=== PATIENT | female | born 1965 | race Caucasian/White ===

== ENCOUNTER 2018-01-19 16:33 | Emergency (ER) | payer SELFPAY ==
--- NOTE | 2018-01-19 17:07 | RAD REPORT ---
EXAM DESCRIPTION: CT - Head Brain Wo Cont - 01/19/2018 5:00 pm CLINICAL HISTORY: Hypertension, headache. COMPARISON: None. TECHNIQUE: All CT scans are performed using dose optimization technique as appropriate and may inclu de automated exposure control or mA/KV adjustment according to patient size. FINDINGS: No intracranial hemorrhage, hydrocephalus or extra-axial fluid collection.No areas of brai n edema or evidence of midline shift. The paranasal sinuses and mastoids are clear. The calvarium is intact. IMPRESSION: No acute intracranial abnormality.
[2018-01-19 17:10] LABS: Barbiturates NEGATIVE; Benzodiazepines NEGATIVE; Cocaine NEGATIVE; METHAMPHETAM NEGATIVE; Opiates NEGATIVE; Phencyclidine NEGATIVE; THC Cannibis NEGATIVE
[2018-01-19] MEDS ORDERED: ACETAMINOPHEN 500 MG TAB ONE (17:18)
[2018-01-19] MEDS ORDERED: NA CHLORIDE 0.9% 500 ML ONE (17:18)
[2018-01-19 17:21] LABS: Absolute Lymphocytes (CBC) 1.3 K/uL (0.7-4.9); Absolute Monocytes 0.3 K/uL (0.1-1.3); Absolute Neutrophil 3.5 K/uL (1.8-8.0); Basophils % 1.5 % (0-1.3); Eosinophils % 5.3 % (0-4.4); Hematocrit 39.2 % (36.0-45.0); MCH 30.3 pg (27.0-35.0); MPV 7.8 fL (7.6-11.3); Monocytes % 6.2 % (3.3-12.3); RBC Red Blood Cell Count 4.26 M/uL (3.86-4.86)
[2018-01-19 17:27] LABS: Protime INR 0.9
[2018-01-19 17:27] LABS: Urine Blood 2+ (NEG); Urine Glucose NEGATIVE (NEG); Urine Protein NEGATIVE (NEG); Urine pH 6.5 (5.0-7.0)
[2018-01-19 17:30] LABS: Bicarbonate 30 mEq/L (21-31); Glucose Level 98 mg/dL (65-120); Potassium 3.6 mEq/L (3.6-5.0); Sodium Level 143 mEq/L (135-145)
[2018-01-19 17:36] LABS: ALT/SGPT 25 IU/L (10-60); AST/SGOT 29 IU/L (10-42); Albumin 3.9 g/dL (3.2-5.5); Alkaline Phosphatase 79 IU/L (42-121); BUN Blood Urea Nitrogen 22 mg/dL (6-20); Bilirubin Direct < 0.1 mg/dL (0-0.2); Bilirubin Total 0.5 mg/dL (0.3-1.2); Protein, Total 7.2 g/dL (6.0-8.3)
[2018-01-19] MEDS ORDERED: cloNIDine HCl 0.1 MG TAB ONE (17:46)
--- NOTE | 2018-01-19 18:07 | EDPHYS ---
Physician Documentation [facility] Name: Mely Gomez Age: 52 yrs Sex: Female : 1965 Arrival Date: 01/19/2018 Time: 16:34 Bed 16 Private MD: ED Physician Valente Garcia HPI: 01/19 16:42 This 52 yrs old Female presents to ER via EMS with complaints of High Blood cp Pressure. 16:42 The patient has elevated blood pressure and discovered this [place]. Onset: The cp symptoms/episode began/occurred today. Associated signs and symptoms: Pertinent positives: headache, sore throat, cough, Pertinent negatives: chest pain, vomiting, weakness. Severity of symptoms: in the emergency department the blood pressure is improved, mildly, 180 mm Hg. 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 - Social history:: Smoking status: Patient uses tobacco products, denies chronic smoking, but will smoke occasionally. ROS: 16:50 Constitutional: Negative for body aches, chills, fever, poor PO intake. cp 16:50 Eyes: Negative for injury, pain, redness, and discharge. cp 16:50 ENT: Positive for ear pain, sinus congestion, sore throat, Negative for difficulty swallowing, difficulty handling secretions, hoarseness. 16:50 Neck: Negative for pain with movement, pain at rest, stiffness, tenderness. 16:50 Cardiovascular: Negative for chest pain, edema, palpitations. 16:50 Respiratory: Negative for cough, shortness of breath, wheezing. 16:50 Abdomen/GI: Negative for abdominal pain, nausea, vomiting, and diarrhea, anorexia, black/tarry stool, rectal bleeding. 16:50 Back: Negative for pain at rest, pain with movement, radiated pain. 16:50 : Negative for urinary symptoms. 16:50 Skin: Negative for cellulitis, rash. 16:50 Neuro: Positive for headache, Negative for altered mental status, loss of consciousness, syncope, near syncope, weakness. 16:50 All other systems are negative. Exam: 16:55 Constitutional: The patient appears in no acute distress, alert, awake, cp non-diaphoretic, non-toxic, well developed, well nourished. 16:55 Head/Face: Normocephalic, atraumatic. cp 16:55 Eyes: Pupils equal round and reactive to light, extra-ocular motions intact. Lids and cp lashes normal. Conjunctiva and sclera are non-icteric and not injected. Cornea within normal limits. Periorbital areas with no swelling, redness, or edema. ENT: Nares patent. No nasal discharge, no septal abnormalities noted. Tympanic membranes are normal and external auditory canals are clear. Oropharynx with no redness, swelling, or masses, exudates, or evidence of obstruction, uvula midline. Mucous membranes moist. Neck: Trachea midline, no thyromegaly or masses palpated, and no cervical lymphadenopathy. Supple, full range of motion without nuchal rigidity, or vertebral point tenderness. No Meningismus. Chest/axilla: Normal chest wall appearance and motion. Nontender with no deformity. No lesions are appreciated. Cardiovascular: Regular rate and rhythm with a normal S1 and S2. No gallops, murmurs, or rubs. Normal PMI, no JVD. No pulse deficits. Respiratory: Lungs have equal breath sounds bilaterally, clear to auscultation and percussion. No rales, rhonchi or wheezes noted. No increased work of breathing, no retractions or nasal flaring. Abdomen/GI: Soft, non-tender, with normal bowel sounds. No distension or tympany. No guarding or rebound. No evidence of tenderness throughout. Skin: Warm, dry with normal turgor. Normal color with no rashes, no lesions, and no evidence of cellulitis. Neuro: Awake and alert, GCS 15, oriented to person, place, time, and situation. Cranial nerves II-XII grossly intact. Motor strength 5/5 in all extremities. Sensory grossly intact. Cerebellar exam normal. Normal gait. 17:22 ECG was reviewed by the Attending Physician. cp Vital Signs: 16:41 BP 180 / 97; Pulse 84; Resp 16; Temp 98.8; Pulse Ox 98% on R/A; Weight 74.84 kg; Height em 5 ft. 2 in. (157.48 cm); Pain 2/10; 17:25 BP 161 / 92; Pulse 75; Resp 18; Pulse Ox 100% on R/A; em 18:10 BP 145 / 92; Pulse 75; Resp 16; Pulse Ox 99% on R/A; Pain 0/10; em 19:00 BP 143 / 88; Pulse 76; Resp 17; Pulse Ox 99% on R/A; Pain 0/10; em 16:41 Body Mass Index 30.18 (74.84 kg, 157.48 cm) em MDM: 16:45 Patient medically screened. cp 16:45 Differential diagnosis: hypertensive crisis, Malignant HTN, CVA, intracerebral cp hemorrhage, illegal drug use. 18:47 Data reviewed: vital signs, nurses notes, lab test result(s), EKG, radiologic studies, cp plain films. Test interpretation: by ED physician or midlevel provider: ECG, plain radiologic studies. Response to treatment: the patient's symptoms have markedly improved after treatment, and as a result, I will discharge patient. 01/19 16:40 Order name: Basic Metabolic Panel; Complete Time: 17:47 01/19 17:47 Interpretation: Normal except: BUN 22; CRE 1.28; GFR 44. 01/19 16:40 Order name: CBC with Diff; Complete Time: 17:32 01/19 17:32 Interpretation: Normal except: EOSINOPHIL % 5.3; BASO% 1.5. 01/19 16:40 Order name: LFT's; Complete Time: 17:47 01/19 16:40 Order name: Magnesium; Complete Time: 17:47 01/19 16:40 Order name: PT-INR; Complete Time: 17:32 01/19 16:40 Order name: Ptt, Activated; Complete Time: 17:32 01/19 16:40 Order name: Influenza Screen (a \T\ B); Complete Time: 17:21 01/19 16:40 Order name: Strep; Complete Time: 17:21 01/19 16:40 Order name: UDS; Complete Time: 17:21 01/19 17:21 Interpretation: Reviewed. 01/19 16:45 Order name: CT Head Brain wo Cont; Complete Time: 17:21 01/19 17:33 Interpretation: Report reviewed. 01/19 17:06 Order name: Urine Dipstick--Ancillary (enter results); Complete Time: 17:32 ms 01/19 17:32 Interpretation: Normal except: UBLD 2+. cp 01/19 17:15 Order name: Throat Culture EDMS 01/19 18:13 Order name: CXR XRAY; Complete Time: 18:57 cp 01/19 18:57 Interpretation: Report review. 01/19 16:40 Order name: EKG; Complete Time: 16:40 cp 01/19 16:40 Order name: Cardiac monitoring; Complete Time: 16:52 cp 01/19 16:40 Order name: EKG - Nurse/Tech; Complete Time: 17:24 cp 01/19 16:40 Order name: IV Saline Lock; Complete Time: 17:24 cp 01/19 16:40 Order name: Labs collected and sent; Complete Time: 17:24 cp 01/19 16:40 Order name: O2 Per Protocol; Complete Time: 16:52 cp 01/19 16:40 Order name: O2 Sat Monitoring; Complete Time: 16:52 cp 01/19 16:40 Order name: Urine Dipstick-Ancillary (obtain specimen); Complete Time: 16:52 cp EC:22 Rate is 80 beats/min. Rhythm is regular. IA interval is normal. QRS interval is normal. cp QT interval is normal. T waves are Flattened in lead III. No ST changes noted. Interpreted by me. Reviewed by me. Administered Medications: 17:07 Drug: Tylenol 1000 mg Route: PO; em 18:11 Follow up: Response: No adverse reaction; Pain is decreased em 17:23 Drug: NS 0.9% 500 ml Route: IV; Rate: bolus; Site: left antecubital; em 18:11 Follow up: IV Status: Completed infusion; IV Intake: 500ml em 17:28 Drug: cloNIDine 0.1 mg Route: PO; em 18:12 Follow up: Response: No adverse reaction; Blood pressure is lowered em 17:57 Drug: NS 0.9% 1000 ml Route: IV; Rate: 1 bolus; Site: left antecubital; em 19:09 Follow up: IV Status: Completed infusion; IV Intake: 1000ml em Disposition: 01/19/18 18:49 Discharged to Home. Impression: Abnormal results of kidney function studies, Hypertension. - Condition is Stable. - Discharge Instructions: Hypertension, How to Take Your Blood Pressure, [id number], Managing Your High Blood Pressure. - Prescriptions for Clonidine 0.1 mg Oral Tablet - take 1 tablet by ORAL route every 12 hours; 30 tablet. - Medication Reconciliation Form, Thank You Letter, Antibiotic Education, Prescription Opioid Use form. - Follow up: Private Physician; When: 1 - 2 days; Reason: Recheck today's complaints. - Problem is new. - Symptoms have improved. Addendum: 01/21/2018 07:26 Co-signature as Attending Physician, Valente Garcia MD. g s Signatures: Dispatcher [employer] EDWV Nish Archer, MARINE UNDERWRITER MARINE UNDERWRITER em Theron You PA PA Valente Boateng MD MD Corrections: (The following items were deleted from the chart) 01/19 16:51 16:40 Urine Test ordered. em 18:48 18:05 Data reviewed: vital signs, nurses notes, lab test result(s), EKG, radiologic cp studies, CT scan, plain films, cp
--- NOTE | 2018-01-19 18:07 | ER ---
Nurse's Notes [facility] Name: Mely Gomez Age: 52 yrs Sex: Female : 1965 Arrival Date: 01/19/2018 Time: 16:34 Bed 16 Private MD: Diagnosis: Abnormal results of kidney function studies;Hypertension Presentation: 01/19 16:34 Presenting complaint: EMS states: pt has hx of high blood pressure but has not been on iw meds, was told her BP was high at [facility], pt also c/o headache. Transition of care: patient was received from another setting of care (rehabilitation facility). Onset of symptoms was January 19, 2018. Care prior to arrival: None. 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 - Social history:: Smoking status: Patient uses tobacco products, denies chronic smoking, but will smoke occasionally. Screenin:43 Abuse screen: Denies threats or abuse. Nutritional screening: No deficits noted. em Tuberculosis screening: No symptoms or risk factors identified. Fall Risk None identified. Assessment: 16:38 Pain: Complains of pain in forehead Pain currently is 2 out of 10 on a pain scale. em 16:38 General: Appears in no apparent distress. comfortable, Behavior is calm, cooperative, em Reports was at [facility] (rehab facility) and they checked her BP and was told it was high, denies chest pain, SOB, N/V, dizziness,has headache and rates pain 2/10. Pain: Quality of pain is described as pressure, Pain began 2 hours ago. Neuro: Level of Consciousness is awake, alert, obeys commands, Oriented to person, place, time, situation. Neuro: Reports headache frontal area, Denies weakness dizziness, numbness. Cardiovascular: Heart tones S1 S2 present Capillary refill < 3 seconds Patient's skin is warm and dry. Cardiovascular: Denies chest pain, diaphoresis, nausea, shortness of breath, vomiting. Respiratory: Airway is patent Respiratory effort is even, unlabored, Respiratory pattern is regular, symmetrical. Respiratory: Reports cough that is non-productive, since 4 days ago Breath sounds are clear bilaterally. GI: Abdomen is round non-distended, Patient currently denies nausea, vomiting. : No signs and/or symptoms were reported regarding the genitourinary system. EENT: Oral mucosa is moist. Throat is clear is pink. Derm: Skin is intact, Skin is pink, warm \T\ dry. Musculoskeletal: Range of motion: intact in all extremities. 17:01 Reassessment: Patient appears in no apparent distress at this time. I agree with above iw assessment by Nish Archer LVN. 17:24 Reassessment: Patient appears in no apparent distress at this time. Patient and/or em family updated on plan of care and expected duration. Pain level reassessed. Patient is alert, oriented x 3, equal unlabored respirations, skin warm/dry/pink. Patient states feeling better. 18:06 Reassessment: Patient appears in no apparent distress at this time. Patient and/or em family updated on plan of care and expected duration. Pain level reassessed. Patient is alert, oriented x 3, equal unlabored respirations, skin warm/dry/pink. Patient states feeling better. Vital Signs: 16:41 BP 180 / 97; Pulse 84; Resp 16; Temp 98.8; Pulse Ox 98% on R/A; Weight 74.84 kg; Height em 5 ft. 2 in. (157.48 cm); Pain 2/10; 17:25 BP 161 / 92; Pulse 75; Resp 18; Pulse Ox 100% on R/A; em 18:10 BP 145 / 92; Pulse 75; Resp 16; Pulse Ox 99% on R/A; Pain 0/10; em 19:00 BP 143 / 88; Pulse 76; Resp 17; Pulse Ox 99% on R/A; Pain 0/10; em 16:41 Body Mass Index 30.18 (74.84 kg, 157.48 cm) em ED Course: 16:34 Patient arrived in ED. iw 16:35 Triage completed. iw 16:36 Nish Archer LVN is Primary Nurse. em 16:37 Theron You PA is PHCP. cp 16:37 Valente Garcia MD is Attending Physician. cp 16:41 Arm band placed on. em 16:43 Patient has correct armband on for positive identification. Bed in low position. Call em light in reach. Side rails up X2. 16:43 No provider procedures requiring assistance completed. em 16:59 CT completed. Patient tolerated procedure well. Patient moved back from CT. bq 16:59 CT Head Brain wo Cont In Process Unspecified. EDMS 17:00 Inserted saline lock: 22 gauge in left antecubital area, using aseptic technique. Blood em collected. 18:38 CXR XRAY In Process Unspecified. EDMS 19:02 Primary Nurse role handed off by Nish Archer LVN rg2 19:09 Nish Archer LVN is Primary Nurse. em 19:11 IV discontinued, intact, bleeding controlled, No redness/swelling at site. Pressure em dressing applied. Administered Medications: 17:07 Drug: Tylenol 1000 mg Route: PO; em 18:11 Follow up: Response: No adverse reaction; Pain is decreased em 17:23 Drug: NS 0.9% 500 ml Route: IV; Rate: bolus; Site: left antecubital; em 18:11 Follow up: IV Status: Completed infusion; IV Intake: 500ml em 17:28 Drug: cloNIDine 0.1 mg Route: PO; em 18:12 Follow up: Response: No adverse reaction; Blood pressure is lowered em 17:57 Drug: NS 0.9% 1000 ml Route: IV; Rate: 1 bolus; Site: left antecubital; em 19:09 Follow up: IV Status: Completed infusion; IV Intake: 1000ml em Intake: 18:11 IV: 500ml; Total: 500ml. em 19:09 IV: 1000ml; Total: 1500ml. em Outcome: 18:07 Discharge ordered by MD. cp 18:49 Discharge ordered by MD. cp 19:10 Discharged to home ambulatory. em 19:10 Condition: good 19:10 Discharge instructions given to patient, Instructed on discharge instructions, follow up and referral plans. medication usage, Demonstrated understanding of instructions, follow-up care, medications, Prescriptions given X 1. 19:11 Patient left the ED. em Signatures: Dispatcher [employer] EDAK Antoinette Nix rg2 Katie Solares bq Nish Archer LVN LVN em Lori Vargas RN RN iw Page, Corey, PA PA cp Corrections: (The following items were deleted from the chart) 16:51 16:38 General: Appears in no apparent distress. comfortable, Behavior is calm, em cooperative, em
[2018-01-19] MEDS ORDERED: NA CHLORIDE 0.9% 1,000 ML ONE (18:13)
--- NOTE | 2018-01-19 18:53 | RAD REPORT ---
EXAM DESCRIPTION: RAD - Chest Single View - 01/19/2018 6:37 pm CLINICAL HISTORY: Hypertension, chest pain. COMPARISON: None. FINDINGS: Portable technique limits examination quality. The lungs are grossly clear. The heart is normal in size. No displaced fractures. IMPRESSION: No acute intrathoracic process suspected.
--- NOTE | 2018-01-20 12:45 | EKG ---
Test Date: 2018-01-19 Test Time: 17:17:30 Deck[employer] F[employer] Vessel: [facility] MEASUREMENT RESULTS: Intervals: Rate: 80 RI: 170 QRSD: 94 QT: 400 QTc: 461 [place]: P: 54 RI: 170 QRS: 13 T: 39 INTERPRETIVE STATEMENTS: Normal sinus rhythm Normal ECG No previous ECG available for comparison Electronically Signed On 01-20-18 12:44:26 CDT by Joe Carrillo
== END 2018-01-19 19:11 | disposition home or self-care (01) ==
LOC: ER 16:33
DX: I10 Essential (primary) hypertension (principal); R94.4 Abnormal results of kidney function studies; Z85.41 Personal history of malignant neoplasm of cervix uteri; Z72.0 Tobacco use
CPT/HCPCS: 36415; 70450; 71045; 80048; 80076; 80307; 81003; 83735; 85025; 85610; 85730; 87070; 87081; 87804; 93005; 96360; 96361; 99284; J7030